=== PATIENT | male | born 1950 ===

== ENCOUNTER 2019-09-28 17:46 | Inpatient (IN) ==
[2019-09-28] MEDS ORDERED: Sucralfate 1 GM TABLET PO STA (19:28)
[2019-09-28] MEDS ORDERED: Ondansetron 4 MG/2 ML VIAL IVP ONE (19:29)
[2019-09-28] MEDS ORDERED: 0.9 % Sodium Chloride 1,000 ML IVC SCH ×2 (19:30→21:45)
[2019-09-28 20:01] LABS: Basophils # 0.1 K/mcL (0.0-0.2); Basophils % 0.6 %; Eosinophils # 0.1 K/mcL (0.0-0.6); Eosinophils % 0.5 %; Hematocrit 26.7 % (37.5-50.1); Immature Granulocytes % 0.5 % (0-4); Lymphocytes # 1.5 K/mcL (0.6-4.6); Lymphocytes % 13.2 %; Mean Corpuscular Hemoglobin 27.7 pg (28.0-33.3); Mean Platelet Volume 10.7 fL (9.4-12.4); Monocytes # 0.7 K/mcL (0.0-1.3); Monocytes % 6.2 %; Neutrophils # 8.8 K/mcL (1.6-8.9); Platelet Count 325 K/mcL (140-400); Red Blood Count 3.18 M/mcL (4.19-5.50); Red Cell Distribution Width 13.5 % (11.5-14.5); White Blood Count 11.1 K/mcL (4.3-11.1)
[2019-09-28 20:02] LABS: Hemoglobin 8.8 g/dL (12.9-16.9)
[2019-09-28 20:18] LABS: Alanine Aminotransferase 10 Units/L (7-52); Albumin 3.6 g/dL (3.5-5.7); Albumin/Globulin Ratio 1.3 (1.1-2.2); Alkaline Phosphatase 61 Units/L (34-104); Aspartate Amino Transferase 14 Units/L (13-39); BUN/Creatinine Ratio 32 (6-26); Bilirubin,Direct 0.1 mg/dL (0.0-0.2); Bilirubin,Indirect 0.2 mg/dL (0.0-1.0); Bilirubin,Total 0.3 mg/dL (0.3-1.0); Blood Urea Nitrogen 61 mg/dL (8-23); Calcium 8.9 mg/dL (8.6-10.3); Carbon Dioxide 17 mEq/L (23-29); Chloride 105 mEq/L (98-107); Globulin 2.8 g/dL (2.4-3.5); Glucose 272 mg/dL (70-105); Lipase 20 Units/L (11-82); Osmolality,Calculated 305 (280-300); Potassium 4.8 mEq/L (3.5-5.1); Sodium 134 mEq/L (136-145); Total Protein 6.4 g/dL (6.4-8.9); Troponin I < 0.03 ng/mL (< 0.04); eGFR For African Americans 43 (> 60); eGFR For Non-African Americans 36 (> 60)
[2019-09-28] MEDS ORDERED: Pantoprazole 40 MG VIAL IVP ONE (20:22)
[2019-09-28 20:56] LABS: Activated Partial Thrombo Time 71.3 Seconds (26.0-36.0)
[2019-09-28 21:03] LABS: Prothrombin Time 146.3 Seconds (9.4-12.1)
[2019-09-28 21:04] LABS: INR 12.8
[2019-09-28 21:36] LABS: Bacteria,Urine Few per hpf (None-Few); Bilirubin,Urine Negative (Negative); Blood,Urine Negative (Negative); Clarity,Urine Clear (Clear); Color,Urine Light-Yellow (Yellow); Glucose,Urine (UA) Normal (Normal); Hyaline Casts,Urine Moderate per lpf (None Seen); Ketones,Urine Negative (Negative); Leukocyte Esterase,Urine Trace (Negative); Mucus,Urine Few per lpf (None-Few); Nitrite,Urine Negative (Negative); PH,Urine 5.5 pH Units (5.0-8.0); Protein,Urine Trace mg/dL (Neg-Trace); RBC,Urine 0-3 per hpf (0-3); Specific Gravity,Urine 1.019 (1.010-1.025); Squamous Epithelial Cell,Urine Few per hpf (None-Few); Urobilinogen,Urine Normal (Normal)
[2019-09-28] MEDS ORDERED: Ondansetron 4 MG/2 ML VIAL IVP PRN (21:39)
[2019-09-28] MEDS ORDERED: Naloxone 0.4 MG/ML INJ IVP PRN (21:39)
[2019-09-28] MEDS ORDERED: *HR* Dextrose 50 % in Water (Vial) 50 ML VIAL IVP PRN (21:43)
[2019-09-28] MEDS ORDERED: Dextrose Gel 15 GM/37.5 ML TUBE PO PRN ×2 (21:43)
[2019-09-28] MEDS ORDERED: D5% in Water 1,000 ML IVC PRN (21:43)
[2019-09-28 22:32] LABS: Hematocrit 23.7 % (37.5-50.1); Hemoglobin 7.9 g/dL (12.9-16.9)
[2019-09-28] MEDS ORDERED: 0.9 % Sodium Chloride 250 ML IVC SCH ×2 (22:45→23:00)
[2019-09-28] MEDS ORDERED: Furosemide 20 MG/2 ML VIAL IVP ONE (23:11)
[2019-09-28] MEDS: Insulin LISPRO 300 UNITS/3 ML VIAL SQ SCH (23:29)
[2019-09-28] MEDS ORDERED: 0.9 % Sodium Chloride 250 ML ONE (23:50)
[2019-09-29] MEDS ORDERED: 0.9 % Sodium Chloride 1,000 ML IV ONE (02:56)
[2019-09-29] MEDS ORDERED: 0.9 % Sodium Chloride 250 ML IVC SCH (03:00)
[2019-09-29] MEDS: 0.9 % Sodium Chloride 1,000 ML IVC SCH ×2 (04:21→11:45)
[2019-09-29] MEDS: Pantoprazole 40 MG VIAL IVP SCH (06:03)
[2019-09-29] MEDS: Insulin LISPRO 300 UNITS/3 ML VIAL SQ SCH ×2 (06:03→11:47)
[2019-09-29] MEDS ORDERED: 0.9 % Sodium Chloride 250 ML ONE (06:22)
[2019-09-29] MEDS ORDERED: Furosemide 20 MG/2 ML VIAL IVP ONE (07:30)
[2019-09-29 09:48] LABS: Basophils # 0.1 K/mcL (0.0-0.2); Basophils % 0.8 %; Eosinophils # 0.1 K/mcL (0.0-0.6); Eosinophils % 1.7 %; Hematocrit 26.6 % (37.5-50.1); Hemoglobin 8.8 g/dL (12.9-16.9); Immature Granulocytes % 0.6 % (0-4); Lymphocytes # 1.3 K/mcL (0.6-4.6); Lymphocytes % 18.4 %; Mean Corpuscular HGB Conc 33.1 g/dL (31.6-35.5); Mean Corpuscular Hemoglobin 28.8 pg (28.0-33.3); Mean Corpuscular Volume 86.9 fL (83.0-100.0); Mean Platelet Volume 10.2 fL (9.4-12.4); Monocytes # 0.7 K/mcL (0.0-1.3); Monocytes % 9.3 %; Neutrophils # 4.9 K/mcL (1.6-8.9); Platelet Count 237 K/mcL (140-400); Red Blood Count 3.06 M/mcL (4.19-5.50); Red Cell Distribution Width 14.2 % (11.5-14.5); Segmented Neutrophils % 69.2 %; White Blood Count 7.1 K/mcL (4.3-11.1)
[2019-09-29 10:01] LABS: Activated Partial Thrombo Time 29.6 Seconds (26.0-36.0); INR 1.5
[2019-09-29 10:08] LABS: Calcium 8.7 mg/dL (8.6-10.3); Chol/HDL Ratio 4.2 (0-4.9); Magnesium 1.7 mg/dL (1.6-2.6); Potassium 4.2 mEq/L (3.5-5.1)
[2019-09-29] MEDS: Calcium Gluconate 1gm/50mL 1 GM/50 ML BAG IVPB SCH ×2 (11:46→13:00)
[2019-09-29 16:38] LABS: Hematocrit 27.2 % (37.5-50.1); Hemoglobin 9.1 g/dL (12.9-16.9)
[2019-09-29] MEDS ORDERED: Naloxone 0.4 MG/ML INJ IVP PRN (18:23)
[2019-09-29] MEDS ORDERED: *HR* Dextrose 50 % in Water (Vial) 50 ML VIAL IVP PRN (18:23)
[2019-09-29] MEDS ORDERED: Dextrose Gel 15 GM/37.5 ML TUBE PO PRN ×2 (18:23)
[2019-09-29] MEDS ORDERED: Ondansetron 4 MG/2 ML VIAL IVP PRN (18:23)
[2019-09-29] MEDS ORDERED: D5% in Water 1,000 ML IVC PRN (18:23)
[2019-09-29 22:07] LABS: Hematocrit 27.3 % (37.5-50.1); Hemoglobin 8.8 g/dL (12.9-16.9)
[2019-09-30] MEDS: Insulin LISPRO 300 UNITS/3 ML VIAL SQ SCH ×7 (00:09→23:33)
[2019-09-30 05:21] LABS: Basophils % 0.6 %; Eosinophils # 0.2 K/mcL (0.0-0.6); Eosinophils % 2.8 %; Hematocrit 25.5 % (37.5-50.1); Hemoglobin 8.6 g/dL (12.9-16.9); Immature Granulocytes % 0.7 % (0-4); Lymphocytes # 1.3 K/mcL (0.6-4.6); Mean Corpuscular HGB Conc 33.7 g/dL (31.6-35.5); Mean Corpuscular Hemoglobin 29.1 pg (28.0-33.3); Mean Corpuscular Volume 86.1 fL (83.0-100.0); Mean Platelet Volume 10.4 fL (9.4-12.4); Monocytes # 0.6 K/mcL (0.0-1.3); Monocytes % 8.6 %; Neutrophils # 4.7 K/mcL (1.6-8.9); Platelet Count 239 K/mcL (140-400); Red Blood Count 2.96 M/mcL (4.19-5.50); Red Cell Distribution Width 14.1 % (11.5-14.5); Segmented Neutrophils % 68.3 %; White Blood Count 6.9 K/mcL (4.3-11.1)
[2019-09-30 05:29] LABS: INR 1.3; Prothrombin Time 14.2 Seconds (9.4-12.1)
[2019-09-30] MEDS: Pantoprazole 40 MG VIAL IVP SCH ×3 (05:40→23:34)
[2019-09-30 05:42] LABS: Alanine Aminotransferase 18 Units/L (7-52); Albumin 3.3 g/dL (3.5-5.7); Albumin/Globulin Ratio 1.4 (1.1-2.2); Alkaline Phosphatase 65 Units/L (34-104); Aspartate Amino Transferase 23 Units/L (13-39); BUN/Creatinine Ratio 22 (6-26); Bilirubin,Total 0.5 mg/dL (0.3-1.0); Blood Urea Nitrogen 27 mg/dL (8-23); Calcium 8.9 mg/dL (8.6-10.3); Carbon Dioxide 20 mEq/L (23-29); Chloride 107 mEq/L (98-107); Globulin 2.4 g/dL (2.4-3.5); Glucose 183 mg/dL (70-105); Magnesium 1.7 mg/dL (1.6-2.6); Osmolality,Calculated 292 (280-300); Phosphorous 2.5 mg/dL (2.7-4.5); Sodium 136 mEq/L (136-145); Total Protein 5.7 g/dL (6.4-8.9); eGFR For African Americans > 60 (> 60); eGFR For Non-African Americans 60 (> 60)
[2019-09-30] MEDS ORDERED: *HR* Propofol 200 MG/20 ML VIAL IVP ONE (09:17)
[2019-09-30] MEDS ORDERED: Lidocaine -MPF 2% 2 ML VIAL ONE (09:17)
[2019-09-30 10:10] LABS: Hematocrit 27.5 % (37.5-50.1)
[2019-09-30] MEDS: Sucralfate 1 GM TABLET PO SCH ×2 (15:35→20:23)
[2019-09-30 16:07] LABS: Hematocrit 29.3 % (37.5-50.1); Hemoglobin 9.8 g/dL (12.9-16.9)
[2019-09-30] MEDS ORDERED: Dextrose Gel 15 GM/37.5 ML TUBE PO PRN ×2 (16:38)
[2019-09-30] MEDS ORDERED: D5% in Water 1,000 ML IVC PRN (16:38)
[2019-09-30] MEDS ORDERED: *HR* Dextrose 50 % in Water (Vial) 50 ML VIAL IVP PRN (16:38)
[2019-10-01 01:18] LABS: Hematocrit 28.2 % (37.5-50.1); Hemoglobin 9.4 g/dL (12.9-16.9)
[2019-10-01 01:19] LABS: Basophils # 0.1 K/mcL (0.0-0.2); Basophils % 0.9 %; Eosinophils # 0.2 K/mcL (0.0-0.6); Eosinophils % 3.3 %; Hemoglobin 9.4 g/dL (12.9-16.9); Immature Granulocytes % 0.6 % (0-4); Lymphocytes # 1.5 K/mcL (0.6-4.6); Lymphocytes % 21.5 %; Mean Corpuscular HGB Conc 32.4 g/dL (31.6-35.5); Mean Corpuscular Volume 89.5 fL (83.0-100.0); Mean Platelet Volume 10.7 fL (9.4-12.4); Monocytes # 0.6 K/mcL (0.0-1.3); Monocytes % 9.2 %; Neutrophils # 4.4 K/mcL (1.6-8.9); Platelet Count 236 K/mcL (140-400); Red Blood Count 3.24 M/mcL (4.19-5.50); Red Cell Distribution Width 14.5 % (11.5-14.5); Segmented Neutrophils % 64.5 %; White Blood Count 6.9 K/mcL (4.3-11.1)
[2019-10-01 01:36] LABS: Alanine Aminotransferase 23 Units/L (7-52); Albumin 3.3 g/dL (3.5-5.7); Albumin/Globulin Ratio 1.3 (1.1-2.2); Alkaline Phosphatase 68 Units/L (34-104); Aspartate Amino Transferase 25 Units/L (13-39); BUN/Creatinine Ratio 16 (6-26); Bilirubin,Total 0.5 mg/dL (0.3-1.0); Blood Urea Nitrogen 19 mg/dL (8-23); Calcium 8.4 mg/dL (8.6-10.3); Carbon Dioxide 18 mEq/L (23-29); Chloride 106 mEq/L (98-107); Globulin 2.6 g/dL (2.4-3.5); Glucose 209 mg/dL (70-105); Osmolality,Calculated 286 (280-300); Potassium 4.2 mEq/L (3.5-5.1); Sodium 134 mEq/L (136-145); Total Protein 5.9 g/dL (6.4-8.9); eGFR For African Americans > 60 (> 60); eGFR For Non-African Americans 60 (> 60)
[2019-10-01 04:00] LABS: Hematocrit 27.7 % (37.5-50.1); Hemoglobin 9.2 g/dL (12.9-16.9)
[2019-10-01] MEDS: Pantoprazole 40 MG VIAL IVP SCH (05:24)
[2019-10-01] MEDS: Insulin LISPRO 300 UNITS/3 ML VIAL SQ SCH ×2 (08:09→12:04)
[2019-10-01] MEDS: Sucralfate 1 GM TABLET PO SCH ×2 (08:09→12:04)
[2019-10-01] MEDS ORDERED: Isovue-250 100 ML INFUS..BTL ONE (08:21)
[2019-10-01] MEDS ORDERED: Heparin 1,000 UNITS/500 mL 500 ML ONE (08:21)
[2019-10-01 11:12] LABS: Hematocrit 27.5 % (37.5-50.1); Hemoglobin 9.1 g/dL (12.9-16.9)
[2019-10-01 14:48] VITALS: BP 125/74
== END 2019-10-01 15:31 | disposition home or self-care (01) | DRG 357 ==
LOC: EMEROOARM 17:46 → 3ANU 17:46 → ICNU 09-29 05:12 → 3ANU 09-30 13:05
PROVIDERS: ADMIT Family Medicine; ATTEND Family Medicine
PROC: ENDOEBX (2019-09-30 08:45)

== ENCOUNTER 2019-10-24 16:08 | Inpatient (IN) ==
[2019-10-24 16:41] LABS: Basophils # 0.1 K/mcL (0.0-0.2); Basophils % 0.9 %; Eosinophils # 0.1 K/mcL (0.0-0.6); Eosinophils % 0.9 %; Hematocrit 30.5 % (37.5-50.1); Immature Granulocytes % 0.7 % (0-4); Lymphocytes # 1.2 K/mcL (0.6-4.6); Mean Corpuscular HGB Conc 32.8 g/dL (31.6-35.5); Mean Corpuscular Hemoglobin 27.4 pg (28.0-33.3); Mean Corpuscular Volume 83.6 fL (83.0-100.0); Mean Platelet Volume 10.6 fL (9.4-12.4); Monocytes # 0.6 K/mcL (0.0-1.3); Monocytes % 7.1 %; Neutrophils # 6.3 K/mcL (1.6-8.9); Platelet Count 363 K/mcL (140-400); Red Blood Count 3.65 M/mcL (4.19-5.50); Red Cell Distribution Width 14.4 % (11.5-14.5); Segmented Neutrophils % 76.4 %; White Blood Count 8.2 K/mcL (4.3-11.1)
[2019-10-24 16:46] LABS: INR 1.4
[2019-10-24 16:59] LABS: Calcium 9.6 mg/dL (8.6-10.3); Potassium 4.6 mEq/L (3.5-5.1)
[2019-10-24 17:01] LABS: Troponin I 0.05 ng/mL (< 0.04)
[2019-10-24] MEDS ORDERED: 0.9 % Sodium Chloride 1,000 ML IVC ONE (17:08)
[2019-10-24] MEDS ORDERED: Ondansetron 4 MG/2 ML VIAL IVP PRN (17:44)
[2019-10-24] MEDS ORDERED: Naloxone 0.4 MG/ML INJ IVP PRN (17:44)
[2019-10-24] MEDS ORDERED: D5% in Water 1,000 ML IVC PRN (17:54)
[2019-10-24] MEDS ORDERED: Dextrose Gel 15 GM/37.5 ML TUBE PO PRN ×2 (17:54)
[2019-10-24] MEDS ORDERED: *HR* Dextrose 50 % in Water (Vial) 50 ML VIAL IVP PRN (17:54)
[2019-10-24] MEDS: Sodium Bicarbonate 75 MEQ in 0.45 % Sodium Chloride 1,000 ML IVC SCH (20:27)
[2019-10-24] MEDS: Sucralfate 1 GM TABLET PO SCH (20:30)
[2019-10-24] MEDS: Famotidine 20 MG TABLET PO SCH (20:30)
[2019-10-25 04:33] LABS: Basophils % 0.7 %; Eosinophils # 0.1 K/mcL (0.0-0.6); Eosinophils % 1.5 %; Hematocrit 27.4 % (37.5-50.1); Hemoglobin 8.9 g/dL (12.9-16.9); Immature Granulocytes % 0.5 % (0-4); Lymphocytes # 1.2 K/mcL (0.6-4.6); Lymphocytes % 19.5 %; Mean Corpuscular HGB Conc 32.5 g/dL (31.6-35.5); Mean Platelet Volume 11.1 fL (9.4-12.4); Monocytes # 0.6 K/mcL (0.0-1.3); Monocytes % 9.4 %; Neutrophils # 4.1 K/mcL (1.6-8.9); Platelet Count 285 K/mcL (140-400); Red Cell Distribution Width 14.5 % (11.5-14.5); Segmented Neutrophils % 68.4 %
[2019-10-25] MEDS: Sodium Bicarbonate 75 MEQ in 0.45 % Sodium Chloride 1,000 ML IVC SCH ×2 (04:41→15:17)
[2019-10-25 04:56] LABS: Calcium 9.3 mg/dL (8.6-10.3); Phosphorous 3.3 mg/dL (2.7-4.5); Potassium 4.1 mEq/L (3.5-5.1)
[2019-10-25 04:58] LABS: Troponin I 0.05 ng/mL (< 0.04)
[2019-10-25] MEDS: Insulin LISPRO 300 UNITS/3 ML VIAL SQ SCH ×3 (08:41→17:19)
[2019-10-25] MEDS: Sucralfate 1 GM TABLET PO SCH ×5 (08:42→20:23)
[2019-10-25 10:48] LABS: Sodium, Urine 61.5 mEq/L
[2019-10-25 10:50] LABS: Amorphous Sediment,Urine Few per hpf (None-Few); Bacteria,Urine Few per hpf (None-Few); Bilirubin,Urine Negative (Negative); Blood,Urine Negative (Negative); Clarity,Urine Clear (Clear); Color,Urine Light-Yellow (Yellow); Glucose,Urine (UA) 70 mg/dL (Normal); Hyaline Casts,Urine Few per lpf (None Seen); Ketones,Urine 10 mg/dL (Negative); Leukocyte Esterase,Urine Trace (Negative); Mucus,Urine Few per lpf (None-Few); Nitrite,Urine Negative (Negative); PH,Urine 5.5 pH Units (5.0-8.0); Protein,Urine 30 mg/dL (Neg-Trace); RBC,Urine 0-3 per hpf (0-3); Specific Gravity,Urine 1.014 (1.010-1.025); Squamous Epithelial Cell,Urine Few per hpf (None-Few); Urobilinogen,Urine Normal (Normal)
[2019-10-25 13:15] LABS: Hematocrit 25.6 % (37.5-50.1); Hemoglobin 8.5 g/dL (12.9-16.9)
[2019-10-25 18:19] LABS: Bilirubin,Urine Negative (Negative); Blood,Urine Trace (Negative); Clarity,Urine Clear (Clear); Color,Urine Light-Yellow (Yellow); Glucose,Urine (UA) 70 mg/dL (Normal); Ketones,Urine 10 mg/dL (Negative); Leukocyte Esterase,Urine Negative (Negative); Mucus,Urine Few per lpf (None-Few); Nitrite,Urine Negative (Negative); PH,Urine 5.5 pH Units (5.0-8.0); Protein,Urine Trace mg/dL (Neg-Trace); Specific Gravity,Urine 1.014 (1.010-1.025); Squamous Epithelial Cell,Urine Few per hpf (None-Few); Uric Acid Crystals,Urine Present; Urobilinogen,Urine Normal (Normal)
[2019-10-25] MEDS: Famotidine 20 MG TABLET PO SCH (21:05)
[2019-10-25 21:37] LABS: Hematocrit 26.1 % (37.5-50.1); Hemoglobin 8.5 g/dL (12.9-16.9)
[2019-10-26 00:44] LABS: Complement C3 101 mg/dL (87-200)
[2019-10-26] MEDS: Sodium Bicarbonate 75 MEQ in 0.45 % Sodium Chloride 1,000 ML IVC SCH ×4 (02:17→21:14)
[2019-10-26 02:49] LABS: Basophils % 0.8 %; Eosinophils # 0.1 K/mcL (0.0-0.6); Eosinophils % 1.7 %; Hematocrit 26.9 % (37.5-50.1); Hemoglobin 8.7 g/dL (12.9-16.9); Immature Granulocytes % 0.6 % (0-4); Lymphocytes # 0.9 K/mcL (0.6-4.6); Lymphocytes % 18.2 %; Mean Corpuscular HGB Conc 32.3 g/dL (31.6-35.5); Mean Corpuscular Hemoglobin 26.9 pg (28.0-33.3); Mean Corpuscular Volume 83.3 fL (83.0-100.0); Monocytes # 0.4 K/mcL (0.0-1.3); Monocytes % 8.3 %; Neutrophils # 3.6 K/mcL (1.6-8.9); Platelet Count 284 K/mcL (140-400); Red Blood Count 3.23 M/mcL (4.19-5.50); Red Cell Distribution Width 14.6 % (11.5-14.5); Segmented Neutrophils % 70.4 %; White Blood Count 5.2 K/mcL (4.3-11.1)
[2019-10-26 03:14] LABS: Calcium 8.9 mg/dL (8.6-10.3); Potassium 4.1 mEq/L (3.5-5.1)
[2019-10-26] MEDS: Insulin LISPRO 300 UNITS/3 ML VIAL SQ SCH ×3 (08:57→17:48)
[2019-10-26] MEDS: Sucralfate 1 GM TABLET PO SCH ×4 (08:57→20:16)
[2019-10-26] MEDS: Famotidine 20 MG TABLET PO SCH (19:58)
[2019-10-27 01:48] LABS: Kappa Qnt Free Light Chains 99.94 mg/L (3.30-19.40); Lambda Qnt Free Light Chains 59.86 mg/L (5.71-26.30)
[2019-10-27] MEDS: Sodium Bicarbonate 75 MEQ in 0.45 % Sodium Chloride 1,000 ML IVC SCH ×2 (04:42→14:46)
[2019-10-27 06:00] LABS: Basophils % 0.4 %; Eosinophils # 0.1 K/mcL (0.0-0.6); Hematocrit 24.5 % (37.5-50.1); Hemoglobin 7.7 g/dL (12.9-16.9); Immature Granulocytes % 0.6 % (0-4); Lymphocytes # 0.9 K/mcL (0.6-4.6); Lymphocytes % 17.9 %; Mean Corpuscular HGB Conc 31.4 g/dL (31.6-35.5); Mean Corpuscular Hemoglobin 26.6 pg (28.0-33.3); Mean Corpuscular Volume 84.8 fL (83.0-100.0); Mean Platelet Volume 11.6 fL (9.4-12.4); Monocytes # 0.5 K/mcL (0.0-1.3); Monocytes % 9.5 %; Neutrophils # 3.5 K/mcL (1.6-8.9); Platelet Count 240 K/mcL (140-400); Red Blood Count 2.89 M/mcL (4.19-5.50); Red Cell Distribution Width 14.5 % (11.5-14.5); Segmented Neutrophils % 69.6 %
[2019-10-27 06:17] LABS: Calcium 8.7 mg/dL (8.6-10.3); Potassium 3.5 mEq/L (3.5-5.1)
[2019-10-27] MEDS: Sucralfate 1 GM TABLET PO SCH ×4 (08:12→20:58)
[2019-10-27] MEDS: Insulin LISPRO 300 UNITS/3 ML VIAL SQ SCH ×3 (08:13→16:51)
[2019-10-27 15:01] LABS: Hematocrit 22.9 % (37.5-50.1); Hemoglobin 7.5 g/dL (12.9-16.9)
[2019-10-27] MEDS: 0.9 % Sodium Chloride 1,000 ML IVC SCH (16:49)
[2019-10-27] MEDS: Famotidine 20 MG TABLET PO SCH (20:56)
[2019-10-28] MEDS: 0.9 % Sodium Chloride 1,000 ML IVC SCH (01:45)
[2019-10-28 02:42] LABS: Alpha 2 Globulin (PEP) 0.92 g/dL (0.48-1.05); Beta Globulin (PEP) 0.71 g/dL (0.48-1.10)
[2019-10-28 07:09] VITALS: BP 115/78
[2019-10-28 08:39] LABS: Basophils % 0.4 %; Eosinophils # 0.2 K/mcL (0.0-0.6); Eosinophils % 3.1 %; Hematocrit 25.1 % (37.5-50.1); Hemoglobin 8.1 g/dL (12.9-16.9); Immature Granulocytes % 0.8 % (0-4); Lymphocytes # 0.9 K/mcL (0.6-4.6); Lymphocytes % 17.8 %; Mean Corpuscular HGB Conc 32.3 g/dL (31.6-35.5); Mean Corpuscular Hemoglobin 27.7 pg (28.0-33.3); Mean Platelet Volume 11.4 fL (9.4-12.4); Monocytes # 0.5 K/mcL (0.0-1.3); Monocytes % 9.2 %; Neutrophils # 3.4 K/mcL (1.6-8.9); Platelet Count 241 K/mcL (140-400); Red Blood Count 2.92 M/mcL (4.19-5.50); Red Cell Distribution Width 14.6 % (11.5-14.5); Segmented Neutrophils % 68.7 %; White Blood Count 4.9 K/mcL (4.3-11.1)
[2019-10-28 08:51] LABS: Calcium 8.6 mg/dL (8.6-10.3); Potassium 3.3 mEq/L (3.5-5.1)
[2019-10-28] MEDS: Insulin LISPRO 300 UNITS/3 ML VIAL SQ SCH (09:44)
[2019-10-28] MEDS: Sucralfate 1 GM TABLET PO SCH (09:44)
[2019-10-28 09:55] LABS: IFE Reflexed NOT DONE
[2019-10-28 10:05] LABS: ANA IgG by ELISA NONE DETECTED (None Detected)
== END 2019-10-28 10:30 | disposition home or self-care (01) | DRG 683 ==
LOC: EMEROOARM 16:08 → 2ANU 16:08 → SUATTDRO 10-25 14:49
PROVIDERS: ADMIT Internal Medicine; ATTEND Family Medicine

== ENCOUNTER 2019-11-07 15:01 | Inpatient (IN) ==
[2019-11-07 16:13] LABS: Hematocrit 26.1 % (37.5-50.1); Hemoglobin 8.7 g/dL (12.9-16.9); Mean Corpuscular HGB Conc 33.3 g/dL (31.6-35.5); Mean Corpuscular Hemoglobin 27.5 pg (28.0-33.3); Mean Corpuscular Volume 82.6 fL (83.0-100.0); Mean Platelet Volume 13.4 fL (9.4-12.4); Red Blood Count 3.16 M/mcL (4.19-5.50); Red Cell Distribution Width 14.5 % (11.5-14.5); White Blood Count 10.7 K/mcL (4.3-11.1)
[2019-11-07 16:14] LABS: Platelet Count 84 K/mcL (140-400)
[2019-11-07 16:33] LABS: Calcium 8.7 mg/dL (8.6-10.3); Potassium 4.3 mEq/L (3.5-5.1)
[2019-11-07 17:35] LABS: Troponin I 0.04 ng/mL (< 0.04)
[2019-11-07] MEDS ORDERED: 0.9 % Sodium Chloride 1,000 ML IV ONE (17:37)
[2019-11-07 17:59] LABS: Albumin 2.8 g/dL (3.5-5.7); Albumin/Globulin Ratio 0.9 (1.1-2.2); Bilirubin,Direct 0.3 mg/dL (0.0-0.2); Bilirubin,Indirect 0.5 mg/dL (0.0-1.0); Bilirubin,Total 0.8 mg/dL (0.3-1.0); Globulin 3.1 g/dL (2.4-3.5); Total Protein 5.9 g/dL (6.4-8.9)
[2019-11-07] MEDS ORDERED: Apixaban 5 MG TABLET PO ONE (18:30)
[2019-11-07] MEDS ORDERED: *HR* Promethazine 25 MG/ML VIAL IVP PRN (19:20)
[2019-11-07] MEDS ORDERED: Naloxone 0.4 MG/ML INJ IVP PRN (19:20)
[2019-11-07] MEDS ORDERED: 0.9 % Sodium Chloride 1,000 ML IVC SCH (19:30)
[2019-11-07] MEDS ORDERED: D5% in Water 1,000 ML IVC PRN (20:10)
[2019-11-07] MEDS ORDERED: *HR* Dextrose 50 % in Water (Vial) 50 ML VIAL IVP PRN (20:10)
[2019-11-07] MEDS ORDERED: Dextrose Gel 15 GM/37.5 ML TUBE PO PRN ×2 (20:10)
[2019-11-07 20:45] LABS: Basophils % 0.4 %; Eosinophils # 0.1 K/mcL (0.0-0.6); Immature Granulocytes % 0.6 % (0-4); Lymphocytes # 1.1 K/mcL (0.6-4.6); Lymphocytes % 10.5 %; Monocytes # 1.1 K/mcL (0.0-1.3); Monocytes % 10.5 %; Neutrophils # 8.2 K/mcL (1.6-8.9)
[2019-11-07 21:03] LABS: INR 1.5; Prothrombin Time 17.6 Seconds (9.4-12.1)
[2019-11-07 21:09] LABS: Estimated Average Glucose 186 mg/dl
[2019-11-07] MEDS ORDERED: Pantoprazole 40 MG VIAL IVP SCH (22:17)
[2019-11-07] MEDS: Famotidine 20 MG/2 ML VIAL IVP SCH (22:35)
[2019-11-07] MEDS: Metoclopramide 10 MG/2 ML VIAL IVP SCH (22:36)
[2019-11-08 02:06] LABS: Bacteria,Urine Few per hpf (None-Few); Bilirubin,Urine Negative (Negative); Blood,Urine Negative (Negative); Clarity,Urine Turbid (Clear); Color,Urine Yellow (Yellow); Glucose,Urine (UA) Normal (Normal); Hyaline Casts,Urine Many per lpf (None Seen); Ketones,Urine Negative (Negative); Leukocyte Esterase,Urine Small (Negative); Mucus,Urine Few per lpf (None-Few); Nitrite,Urine Negative (Negative); PH,Urine 5.5 pH Units (5.0-8.0); Protein,Urine 30 mg/dL (Neg-Trace); Specific Gravity,Urine 1.019 (1.010-1.025); Squamous Epithelial Cell,Urine Few per hpf (None-Few); Urobilinogen,Urine Normal (Normal)
[2019-11-08] MEDS ORDERED: Prochlorperazine 10 MG/2 ML VIAL IVP PRN (04:14)
[2019-11-08] MEDS: Famotidine 20 MG/2 ML VIAL IVP SCH (05:27)
[2019-11-08] MEDS: Metoclopramide 10 MG/2 ML VIAL IVP SCH ×3 (05:27→18:10)
[2019-11-08] MEDS ORDERED: Pantoprazole 40 MG VIAL IVP SCH (06:00)
[2019-11-08] MEDS ORDERED: *HR* Metoprolol 5 MG/5 ML VIAL IVP PRN (06:51)
[2019-11-08] MEDS ORDERED: Insulin LISPRO 300 UNITS/3 ML VIAL SQ SCH ×3 (07:30→10:45)
[2019-11-08 07:48] LABS: Basophils % 0.4 %; Immature Granulocytes % 0.4 % (0-4)
[2019-11-08 07:49] LABS: Eosinophils % 0.4 %; Hematocrit 23.5 % (37.5-50.1); Hemoglobin 7.7 g/dL (12.9-16.9); Immature Platelets 14.3 % (1.1-6.1); Lymphocytes # 0.8 K/mcL (0.6-4.6); Lymphocytes % 10.8 %; Mean Corpuscular HGB Conc 32.8 g/dL (31.6-35.5); Mean Corpuscular Volume 82.5 fL (83.0-100.0); Mean Platelet Volume 12.6 fL (9.4-12.4); Monocytes # 0.8 K/mcL (0.0-1.3); Monocytes % 11.3 %; Neutrophils # 5.6 K/mcL (1.6-8.9); Red Blood Count 2.85 M/mcL (4.19-5.50); Red Cell Distribution Width 14.7 % (11.5-14.5); Segmented Neutrophils % 76.7 %; White Blood Count 7.3 K/mcL (4.3-11.1)
[2019-11-08 07:56] LABS: Platelet Count 69 K/mcL (140-400)
[2019-11-08 08:02] LABS: BUN/Creatinine Ratio 13 (6-26); Blood Urea Nitrogen 34 mg/dL (8-23); Calcium 8.1 mg/dL (8.6-10.3); Carbon Dioxide 24 mEq/L (23-29); Chloride 101 mEq/L (98-107); Glucose 177 mg/dL (70-105); Iron < 10 mcg/dL (65-175); Osmolality,Calculated 292 (280-300); Potassium 4.2 mEq/L (3.5-5.1); Sodium 135 mEq/L (136-145); Transferrin 163 mg/dL (203-362); eGFR For African Americans 31 (> 60); eGFR For Non-African Americans 26 (> 60)
[2019-11-08 08:15] LABS: Ferritin 61 ng/mL (20-250)
[2019-11-08 08:19] LABS: Folate 5.7 ng/mL (3.0-16.0)
[2019-11-08] MEDS ORDERED: Iron Sucrose Complex 400 MG in 0.9 % Sodium Chloride 250 ML IVPB ONE (08:59)
[2019-11-08 10:23] LABS: Troponin I 0.04 ng/mL (< 0.04)
[2019-11-08] MEDS ORDERED: Lidocaine -MPF 2% 2 ML VIAL ONE (10:33)
[2019-11-08 11:01] LABS: Phosphorous 3.7 mg/dL (2.7-4.5)
[2019-11-08] MEDS ORDERED: D10% in Water 500 ML IVC PRN (12:44)
[2019-11-08] MEDS ORDERED: Acetaminophen IV 1,000 MG/100 ML INFUS..BTL IVPB ONE (12:47)
[2019-11-08 15:00] LABS: Hemoglobin 7.6 g/dL (12.9-16.9)
[2019-11-08] MEDS ORDERED: Clinimix E 5%-15% SOLUTION 2,000 ML with MVI, adult with vitamin K 10 ML IVC SCH (17:00)
[2019-11-08] MEDS: MetroNIDAZOLE 500 MG/100 ML 500 MG/100 ML BAG IVPB SCH ×2 (17:06→17:10)
[2019-11-08] MEDS: Fluconazole 400 MG/200 ML 400 MG/200 ML BAG IVPB SCH (18:08)
[2019-11-08] MEDS: Insulin LISPRO 300 UNITS/3 ML VIAL SQ SCH ×3 (18:09→20:17)
[2019-11-08] MEDS ORDERED: Acetaminophen IV 500 MG/50 ML INFUS..BTL IVPB ONE (19:01)
[2019-11-08] MEDS ORDERED: 0.9 % Sodium Chloride 250 ML ONE (20:00)
[2019-11-08] MEDS ORDERED: Metoclopramide 10 MG/2 ML VIAL IVP SCH (20:00)
[2019-11-09] MEDS: Metoclopramide 10 MG/2 ML VIAL IVP SCH ×4 (00:48→17:15)
[2019-11-09] MEDS: MetroNIDAZOLE 500 MG/100 ML 500 MG/100 ML BAG IVPB SCH ×2 (00:49→08:25)
[2019-11-09] MEDS: Insulin LISPRO 300 UNITS/3 ML VIAL SQ SCH ×6 (00:54→20:58)
[2019-11-09] MEDS ORDERED: Acetaminophen IV 1,000 MG/100 ML INFUS..BTL IVPB ONE (03:57)
[2019-11-09] MEDS ORDERED: *HR* HYDROmorphone PF 0.5 MG/0.5 ML SYRINGE IVP PRN ×2 (07:05→10:26)
[2019-11-09] MEDS ORDERED: Ondansetron 4 MG/2 ML VIAL IVP ONE ×2 (07:05→10:26)
[2019-11-09] MEDS ORDERED: Ketorolac 15 MG/ML VIAL IVP ONE ×2 (07:05→10:26)
[2019-11-09] MEDS ORDERED: Ringers Solution, Lactated 1,000 ML IVC SCH ×2 (07:15→10:26)
[2019-11-09] MEDS ORDERED: Dexamethasone 4 MG/ML VIAL ONE (07:17)
[2019-11-09] MEDS ORDERED: Lidocaine -MPF 2% 2 ML VIAL ONE (07:17)
[2019-11-09] MEDS ORDERED: *HR* Succinylcholine 200 MG/10 ML VIAL IVP ONE (07:17)
[2019-11-09] MEDS ORDERED: *HR* Propofol 200 MG/20 ML VIAL IVP ONE (07:18)
[2019-11-09] MEDS ORDERED: *HR* FentaNYL (PF) 100 MCG/2 ML VIAL ONE (07:18)
[2019-11-09] MEDS ORDERED: *HR* PHENYLEPHRINE 1,000 MCG/10 ML SYRINGE IVP ONE ×3 (08:38→09:13)
[2019-11-09] MEDS ORDERED: EPHEDrine 50 MG/ML VIAL ONE (08:43)
[2019-11-09] MEDS ORDERED: *HR* Vasopressin 20 UNIT/ML VIAL ONE (08:44)
[2019-11-09] MEDS ORDERED: DilTIAZem 50 MG in 0.9 % Sodium Chloride 40 ML IVC SCH (08:45)
[2019-11-09] MEDS: Fluconazole 400 MG/200 ML 400 MG/200 ML BAG IVPB SCH (08:58)
[2019-11-09] MEDS ORDERED: Famotidine 20 MG/2 ML VIAL IVP SCH (09:00)
[2019-11-09] MEDS ORDERED: amLODIPine 5 MG TABLET PO SCH (09:00)
[2019-11-09] MEDS ORDERED: *HR* Rocuronium Bromide 50 MG/5 ML VIAL ONE (09:01)
[2019-11-09] MEDS ORDERED: Naloxone 0.4 MG/ML INJ IVP PRN (10:26)
[2019-11-09] MEDS ORDERED: Clinimix E 5%-15% SOLUTION 2,000 ML with MVI, adult with vitamin K 10 ML IVC SCH ×2 (10:26→17:00)
[2019-11-09] MEDS ORDERED: *HR* Dextrose 50 % in Water (Vial) 50 ML VIAL IVP PRN (10:26)
[2019-11-09] MEDS ORDERED: D10% in Water 500 ML IVC PRN (10:26)
[2019-11-09] MEDS ORDERED: *HR* Metoprolol 5 MG/5 ML VIAL IVP PRN (10:26)
[2019-11-09] MEDS ORDERED: Dextrose Gel 15 GM/37.5 ML TUBE PO PRN ×2 (10:26)
[2019-11-09] MEDS ORDERED: Prochlorperazine 10 MG/2 ML VIAL IVP PRN (10:26)
[2019-11-09] MEDS ORDERED: D5% in Water 1,000 ML IVC PRN (10:26)
[2019-11-09 10:47] LABS: INR 1.6; Prothrombin Time 18.2 Seconds (9.4-12.1)
[2019-11-09 11:00] LABS: Hemoglobin 8.1 g/dL (12.9-16.9)
[2019-11-09 11:02] LABS: Basophils % 0.3 %; Eosinophils # 0.1 K/mcL (0.0-0.6); Eosinophils % 0.8 %; Immature Platelets 13.7 % (1.1-6.1); Lymphocytes # 0.5 K/mcL (0.6-4.6); Lymphocytes % 5.1 %; Mean Corpuscular HGB Conc 32.4 g/dL (31.6-35.5); Mean Corpuscular Hemoglobin 26.7 pg (28.0-33.3); Mean Corpuscular Volume 82.5 fL (83.0-100.0); Mean Platelet Volume 12.9 fL (9.4-12.4); Monocytes # 0.6 K/mcL (0.0-1.3); Monocytes % 7.1 %; Neutrophils # 7.6 K/mcL (1.6-8.9); Red Blood Count 3.03 M/mcL (4.19-5.50); Red Cell Distribution Width 14.6 % (11.5-14.5); Segmented Neutrophils % 85.7 %; White Blood Count 8.9 K/mcL (4.3-11.1)
[2019-11-09 11:03] LABS: Platelet Count 69 K/mcL (140-400)
[2019-11-09 11:21] LABS: Calcium 8.2 mg/dL (8.6-10.3); Phosphorous 4.1 mg/dL (2.7-4.5); Potassium 4.1 mEq/L (3.5-5.1)
[2019-11-09] MEDS ORDERED: *HR* OxyCODONE Immed Rel 5 MG TABLET PO PRN (11:49)
[2019-11-09] MEDS ORDERED: *HR* OxyCODONE Oral Soln 5 MG/5 ML UD.LIQ GTUBE PRN (11:50)
[2019-11-09] MEDS ORDERED: 0.9 % Sodium Chloride 500 ML IVC ONE (13:04)
[2019-11-09] MEDS ORDERED: Iron Sucrose Complex 250 MG in 0.9 % Sodium Chloride 250 ML IVPB SCH (13:15)
[2019-11-09] MEDS: Acetaminophen IV 1,000 MG/100 ML INFUS..BTL IVPB SCH ×2 (13:19→17:16)
[2019-11-09] MEDS ORDERED: MetroNIDAZOLE 500 MG/100 ML 500 MG/100 ML BAG IVPB SCH (16:00)
[2019-11-09] MEDS ORDERED: Pantoprazole 40 MG VIAL IVP SCH (18:00)
[2019-11-09 19:17] VITALS: BP 131/78
[2019-11-10] MEDS ORDERED: Fluconazole 400 MG/200 ML 400 MG/200 ML BAG IVPB SCH (09:00)
[2019-11-10] MEDS ORDERED: Fluconazole 200 MG/100 ML 200 MG/100 ML BAG IVPB SCH (09:00)
[2019-11-10] MEDS ORDERED: amLODIPine 5 MG TABLET PO SCH (09:00)
[2019-11-10] MEDS ORDERED: Clinimix E 5%-15% SOLUTION 2,000 ML with MVI, adult with vitamin K 10 ML IVC SCH (17:00)
[2019-11-11] MEDS ORDERED: Clinimix E 5%-15% SOLUTION 2,000 ML with MVI, adult with vitamin K 10 ML IVC SCH (17:00)
== END 2019-11-10 00:08 | disposition short-term general hospital (02) | DRG 391 ==
LOC: EMEROOARM 15:01 → 3BNU 15:01 → SUATTDRO 20:56 → 3BNU 21:43 → SUATTDRO 11-08 12:33 → 3ANU 11-08 18:38
PROVIDERS: ADMIT Internal Medicine; ATTEND Family Medicine
PROC: ENDOEBX (2019-11-08 17:30)